=== PATIENT | male | born 2000 | race Two or more races ===

== ENCOUNTER 2024-02-05 10:45 | Emergency (ER) | payer OTHER ==
[~2024-02-05] VITALS: Ht 182.9 cm; Wt 83.9 kg
[2024-02-05] MEDS ORDERED: FAMOTIDINE/PF 20 MG/2 ML VIAL ONE (11:14)
[2024-02-05] MEDS ORDERED: ONDANSETRON HCL 2 MG/ML VIAL ONE (11:14)
[2024-02-05] MEDS ORDERED: 0.9 % SODIUM CHLORIDE 1,000 ML IV ONE (11:15)
[2024-02-05] MEDS ORDERED: FAMOtidine 10 MG/ML (4ML VIAL) IV ONE (11:15)
[2024-02-05] MEDS ORDERED: ONDANSETRON HCL 2 MG/ML VIAL IV ONE (11:15)
[2024-02-05 12:30] LABS: PH,URINE 5.5 (5.0-8.0); URINE APPEARANCE Clear; URINE BILIRRUBIN Small (NEGATIVE); URINE BLOOD Negative; URINE COLOR Dark Yellow; URINE GLUCOSE Negative (NEGATIVE); URINE LEUKOCYTE Trace; URINE NITRATE Negative
[2024-02-05 12:34] LABS: HEMATOCRIT 45.6 % (39.0-48.0); MEAN CELL VOLUME 80.5 fL (80.0-100.00); MEAN CORPUSCULAR HEMOGLOBIN 28.3 pg (27.00-32.0); MEAN CORPUSCULAR HGB CONC 35.1 g/dl (32.0-36.0); PLATELET COUNT 249 K/uL (150-450); RED BLOOD COUNT 5.67 M/uL (4.00-6.00); RED CELL DISTRIBUTION WIDTH 12.6 % (11.5-14.5)
[2024-02-05 12:34] LABS: URINE BACTERIA 17.6 uL (0.0-1933); URINE CAST 1.67 uL (0.0-1.40); URINE EPITHELIAL CELLS 7.7 uL (0.0-38.8); URINE RBC 4.4 uL (0.0-20.8)
[2024-02-05 12:55] LABS: URINE KETONE 40 (NEGATIVE); URINE PROTEIN 100 (NEGATIVE)
[2024-02-05 13:06] LABS: ALBUMIN 4.1 gm/dL (3.4-5.0); BILIRUBIN TOTAL 0.69 mg/dL (0.3-1.2); CALCIUM 9.6 mg/dL (8.5-10.1); CREATININE SERUM 0.9 mg/dL (0.70-1.30); GFR 104.57; GLOBULINA 4.4 G/DL (2.4-3.5); TOTAL PROTEIN 8.5 gm/dL (6.4-8.2)
[2024-02-05 13:08] LABS: POTASSIUM 3.85 mEq/L (3.5-5.1)
[2024-02-05] MEDS ORDERED: METRONIDAZOLE500 MG PO (14:12)
[2024-02-05] MEDS ORDERED: PEPCID AC20 MG PO (14:12)
[2024-02-05] MEDS ORDERED: ZOFRAN8 MG PO (14:12)
[2024-02-05] MEDS ORDERED: NASAL MIST126 ML NASAL (14:12)
== END 2024-02-05 14:19 | disposition home or self-care (01) ==
LOC: ER 10:46
PROVIDERS: General Practice
DX: K52.89 Other specified noninfective gastroenteritis and colitis (principal)